=== PATIENT | female | born 1950 | race Caucasian/White ===

== ENCOUNTER 2019-02-19 17:43 | Observation (INO) ==
[2019-02-19] MEDS ORDERED: Ipratropium/Albuterol Neb 3 ML IH ONE ×2 (17:56→18:09)
[2019-02-19] MEDS ORDERED: Isovue-370 500 ML BOTTLE IVP ONE (17:56)
--- NOTE | 2019-02-19 17:58 | Emergency Department Note ---
Disposition Clinical Impression: Asthma with exacerbation Qualifiers: Asthma severity: unspecified severity Asthma persistence: unspecified Qualified Code(s): J45.901 - Unspecified asthma with (acute) exacerbation Dyspnea Qualifiers: Dyspnea type: unspecified Qualified Code(s): R06.00 - Dyspnea, unspecified Disposition: Admitted As Inpatient Condition: Fair General Adult HPI - General Chief complaint: ED Shortness of Breath/Dyspnea Stated complaint: SOB Time Seen by Provider: 02/19/19 17:44 Source: patient Limitations: no limitations Nursing Notes Reviewed: Yes Vital Signs Reviewed: Yes - History of Present Illness HPI Narrative: 68-year-old female past medical history of asthma, pulmonary emboli presents emergency Department with shortness of breath. Patient states that she has had increasing shortness of breath over the last few weeks. States that it has not gotten any better despite daily steroids as well as azithromycin. Patient reports recent URI type symptoms. Patient has any fever, nausea, vomiting. She does report cough. She denies any sputum production. Patient denies any chest pain, pressure, tightness or pain anywhere else. Pain Scale: 0 - Related Data Allergies Allergy/AdvReac Type Severity Reaction Status Date / Time No Known Allergies Allergy Verified 02/19/19 18:05 All systems ED: reviewed and negative except as stated. Review of Systems: As Per HPI Constitutional: Denies: fever Cardiovascular: Denies: chest pain Respiratory: Reports: cough, dyspnea. Denies: sputum production Gastrointestinal: Denies: abdominal pain, nausea, vomiting Genitourinary: Denies: urgency, dysuria Musculoskeletal: Denies: back pain Integumentary: Denies: rash Neurological: Denies: headache Past Medical History - Past Medical History Attestation: Yes The following information was validated with the patient. Medical history: Reports: asthma, COPD, hypertension, pulmonary embolus - Social History Smoking Status: Never smoker Smokeless Tobacco Status: No Alcohol use: Reports: none Drug use: Reports: none Physical Exam - General Limitations: no limitations General appearance: alert - Head Head exam: normocephalic - Eye Eye exam: Present: EOMI - ENT ENT exam: mucous membranes moist - Neck Neck exam: Present: trachea midline - Chest Chest inspection: Present: symmetric chest wall rise - Respiratory Respiratory exam: Present: wheezes. Absent: respiratory distress, accessory muscle use - Cardiovascular Cardiovascular exam: Present: normal rhythm, tachycardia - Abdominal Exam Abdominal exam: Present: soft, Non-Tender. Absent: tenderness, distention, guarding, rebound, rigidity - Extremities Exam Extremities exam: Present: normal capillary refill - Back Exam Back exam: Present: full ROM - Neurological Exam Neurological exam: Present: alert, oriented X3 - Psychiatric Psychiatric exam: Present: normal affect, normal mood - Skin Skin exam: Present: warm, dry, intact, normal color. Absent: rash Course Vital Signs Temperature 98.2 F 02/19/19 17:51 Pulse Rate 110 02/19/19 17:51 Respiratory Rate 24 02/19/19 17:51 Blood Pressure 166/94 02/19/19 17:51 O2 Sat by Pulse Oximetry 96 02/19/19 17:51 Temperature 98.2 F 02/19/19 17:51 Pulse Rate 131 02/19/19 20:08 Respiratory Rate 26 02/19/19 20:08 Blood Pressure 155/67 02/19/19 20:08 O2 Sat by Pulse Oximetry 95 02/19/19 20:08 Oxygen Delivery Oxygen Delivery Room Air Medical Decision Making - [facility] Narrative Medical decision making narrative: 68 year female presents emergency department with concern for dysuria. Patient tachycardic, with no increasing requirement for oxygen at this time, however, she does have wheezes throughout. We will give patient a DuoNeb's. We will also administer steroids. Concern that patient has been treated for the last 3 weeks on an outpatient basis for the asthma attack including enema, reveals one week ago. Chest x-ray revealed no acute process. CTA of the chest revealed no evidence of focal consolidation, pneumothorax, significant pleural effusion. Cannot rule out pulmonary embolus. I spoke to Dr. Abdulkadir Pérez, the hospitalist, about the patient. We decided to admit the patient secondary to asthma exacerbation and the concern that we cannot rule out pulmonary embolus. We will start heparin at this time until further studies can be performed. Patient not reporting any history of GI bleeds, hemoptysis, hematemesis. Chest CTA 02/19/19 17:56 IMPRESSION: Limited examination secondary to poor contrast opacification of the pulmonary vessels. No large central pulmonary embolism. Repeat examination or V/Q scan may be obtained as clinically warranted. No evidence of focal consolidation, pneumothorax, or significant pleural effusion. Hepatic steatosis. Suggestion of early hepatic cirrhosis. Clinical correlation is recommended. D/ / 02/19/2019 19:49:55 Addison Calvillo MD / sloane Interpreting Provider: Addison Calvillo MD Chest X-Ray 02/19/19 17:56 IMPRESSION: No acute process. D/ / Morro Huffman MD / Morro Huffman MD Interpreting Provider: Morro Huffman MD - Lab Data Result diagrams: 02/19/19 20:59 02/19/19 18:04 Lab Results 02/19/19 02/19/19 02/19/19 Range/Units 18:04 18:04 18:04 WBC 22.4 H (4.3-11.1) K/mcL RBC 4.62 (3.82-4.97) M/mcL Hgb 13.3 (11.5-15.4) g/dL Hct 42.5 (35.3-44.9) % MCV 92.0 (83.0-100.0) fL MCH 28.8 (28.0-33.3) pg MCHC 31.3 L (31.6-35.5) g/dL RDW 14.3 (11.5-14.5) % Plt Count 385 (140-400) K/mcL MPV 8.9 L (9.4-12.4) fL Immature Gran % 0.8 (0-4) % Seg Neutrophils % 74.0 % Lymphocytes % 17.5 % Monocytes % 6.7 % Eosinophils % 0.7 % Basophils % 0.3 % Neutrophils # 16.6 H (1.6-8.9) K/mcL Lymphocytes # 3.9 (0.6-4.6) K/mcL Monocytes # 1.5 H (0.0-1.3) K/mcL Eosinophils # 0.2 (0.0-0.6) K/mcL Basophils # 0.1 (0.0-0.2) K/mcL PT 10.9 (9.4-12.1) Seconds INR 1.0 APTT 28.3 (26.0-36.0) Seconds Sodium 140 (136-145) mEq/L Potassium 4.5 (3.5-5.1) mEq/L Chloride 106 (98-107) mEq/L Carbon Dioxide 28 (23-29) mEq/L BUN 21 (8-23) mg/dL Creatinine 0.80 (0.60-1.20) mg/dL Est GFR ( Amer) > 60 (> 60) Est GFR (Non-Af Amer) > 60 (> 60) BUN/Creatinine Ratio 26 (6-26) Glucose 86 (70-105) mg/dL Calculated Osmolality 292 (280-300) Lactic Acid (0.5-2.2) mmol/L Calcium 9.4 (8.6-10.3) mg/dL Troponin I < 0.03 (< 0.04) ng/mL B-Natriuretic Peptide (Less than 100) pg/mL Urine Color (Yellow) Urine Clarity (Clear) Urine pH (5.0-8.0) pH Units Ur Specific [place] (1.010-1.025) Urine Protein (Neg-Trace) mg/dL Urine Glucose (UA) (Normal) mg/dL Urine Ketones (Negative) mg/dL Urine Blood (Negative) Urine Nitrite (Negative) Urine Bilirubin (Negative) Urine Urobilinogen (Normal) mg/dL Ur Leukocyte Esterase (Negative) Ur Culture Indicated? (NO) 02/19/19 02/19/19 02/19/19 Range/Units 18:04 18:10 19:25 WBC (4.3-11.1) K/mcL RBC (3.82-4.97) M/mcL Hgb (11.5-15.4) g/dL Hct (35.3-44.9) % MCV (83.0-100.0) fL MCH (28.0-33.3) pg MCHC (31.6-35.5) g/dL RDW (11.5-14.5) % Plt Count (140-400) K/mcL MPV (9.4-12.4) fL Immature Gran % (0-4) % Seg Neutrophils % % Lymphocytes % % Monocytes % % Eosinophils % % Basophils % % Neutrophils # (1.6-8.9) K/mcL Lymphocytes # (0.6-4.6) K/mcL Monocytes # (0.0-1.3) K/mcL Eosinophils # (0.0-0.6) K/mcL Basophils # (0.0-0.2) K/mcL PT (9.4-12.1) Seconds INR APTT (26.0-36.0) Seconds Sodium (136-145) mEq/L Potassium (3.5-5.1) mEq/L Chloride (98-107) mEq/L Carbon Dioxide (23-29) mEq/L BUN (8-23) mg/dL Creatinine (0.60-1.20) mg/dL Est GFR ( Amer) (> 60) Est GFR (Non-Af Amer) (> 60) BUN/Creatinine Ratio (6-26) Glucose (70-105) mg/dL Calculated Osmolality (280-300) Lactic Acid 1.1 (0.5-2.2) mmol/L Calcium (8.6-10.3) mg/dL Troponin I (< 0.04) ng/mL B-Natriuretic Peptide 45 (Less than 100) pg/mL Urine Color Yellow (Yellow) Urine Clarity Clear (Clear) Urine pH 6.0 (5.0-8.0) pH Units Ur Specific [place] > 1.030 H (1.010-1.025) Urine Protein Trace (Neg-Trace) mg/dL Urine Glucose (UA) Normal (Normal) mg/dL Urine Ketones Negative (Negative) mg/dL Urine Blood Negative (Negative) Urine Nitrite Negative (Negative) Urine Bilirubin Negative (Negative) Urine Urobilinogen Normal (Normal) mg/dL Ur Leukocyte Esterase Negative (Negative) Ur Culture Indicated? NO (NO) 02/19/19 Range/Units 20:10 WBC (4.3-11.1) K/mcL RBC (3.82-4.97) M/mcL Hgb (11.5-15.4) g/dL Hct (35.3-44.9) % MCV (83.0-100.0) fL MCH (28.0-33.3) pg MCHC (31.6-35.5) g/dL RDW (11.5-14.5) % Plt Count (140-400) K/mcL MPV (9.4-12.4) fL Immature Gran % (0-4) % Seg Neutrophils % % Lymphocytes % % Monocytes % % Eosinophils % % Basophils % % Neutrophils # (1.6-8.9) K/mcL Lymphocytes # (0.6-4.6) K/mcL Monocytes # (0.0-1.3) K/mcL Eosinophils # (0.0-0.6) K/mcL Basophils # (0.0-0.2) K/mcL PT (9.4-12.1) Seconds INR APTT (26.0-36.0) Seconds Sodium (136-145) mEq/L Potassium (3.5-5.1) mEq/L Chloride (98-107) mEq/L Carbon Dioxide (23-29) mEq/L BUN (8-23) mg/dL Creatinine (0.60-1.20) mg/dL Est GFR ( Amer) (> 60) Est GFR (Non-Af Amer) (> 60) BUN/Creatinine Ratio (6-26) Glucose (70-105) mg/dL Calculated Osmolality (280-300) Lactic Acid 1.6 (0.5-2.2) mmol/L Calcium (8.6-10.3) mg/dL Troponin I (< 0.04) ng/mL B-Natriuretic Peptide (Less than 100) pg/mL Urine Color (Yellow) Urine Clarity (Clear) Urine pH (5.0-8.0) pH Units Ur Specific [place] (1.010-1.025) Urine Protein (Neg-Trace) mg/dL Urine Glucose (UA) (Normal) mg/dL Urine Ketones (Negative) mg/dL Urine Blood (Negative) Urine Nitrite (Negative) Urine Bilirubin (Negative) Urine Urobilinogen (Normal) mg/dL Ur Leukocyte Esterase (Negative) Ur Culture Indicated? (NO) - EKG Data EKG #1 EKG attestation: Yes I reviewed and interpreted this EKG. EKG results narrative: 17:53 Heart rate 112 bpm, VT interval 138 ms, QRS duration 106 ms, QT 230 ms, normal axis. Sinus tachycardia with no ischemic ST changes. Attestation Statement - Attestation Attestation: I, Gerald Leon DO, examined this patient [id number] and my medical decision-making was reviewed with Dr. Aries Yip, Resident Physician. I agree with the documented findings, disposition and treatment plan as described except to the extent set forth below. I personally supervised and was present for the yuen/critical portions of the procedures completed by the resident documented below. Please see my progress notes for details.
[2019-02-19] MEDS ORDERED: predniSONE 20 MG TABLET PO ONE (18:09)
--- NOTE | 2019-02-19 18:14 | Emergency Department Note ---
Disposition Clinical Impression: Asthma with exacerbation Disposition: Admitted As Inpatient Condition: Fair Time of Disposition: 21:01 General Adult HPI - General Chief complaint: ED Shortness of Breath/Dyspnea Stated complaint: SOB Time Seen by Provider: 02/19/19 17:44 Source: patient Limitations: no limitations - History of Present Illness Pain Scale: 0 - Related Data Allergies Allergy/AdvReac Type Severity Reaction Status Date / Time No Known Allergies Allergy Verified 02/19/19 18:05 Past Medical History - Past Medical History Medical history: Reports: asthma, COPD, hypertension, pulmonary embolus - Social History Smoking Status: Never smoker Smokeless Tobacco Status: No Alcohol use: Reports: none Drug use: Reports: none Physical Exam - General Limitations: no limitations General appearance: alert Course Vital Signs Temperature 98.2 F 02/19/19 17:51 Pulse Rate 110 02/19/19 17:51 Respiratory Rate 24 02/19/19 17:51 Blood Pressure 166/94 02/19/19 17:51 O2 Sat by Pulse Oximetry 96 02/19/19 17:51 Temperature 98.2 F 02/19/19 17:51 Pulse Rate 131 02/19/19 20:08 Respiratory Rate 26 02/19/19 20:08 Blood Pressure 155/67 02/19/19 20:08 O2 Sat by Pulse Oximetry 95 02/19/19 20:08 Oxygen Delivery Oxygen Delivery Room Air Medical Decision Making - Lab Data Result diagrams: 02/19/19 18:04 02/19/19 18:04 Lab Results 02/19/19 02/19/19 02/19/19 Range/Units 18:04 18:04 18:04 WBC 22.4 H (4.3-11.1) K/mcL RBC 4.62 (3.82-4.97) M/mcL Hgb 13.3 (11.5-15.4) g/dL Hct 42.5 (35.3-44.9) % MCV 92.0 (83.0-100.0) fL MCH 28.8 (28.0-33.3) pg MCHC 31.3 L (31.6-35.5) g/dL RDW 14.3 (11.5-14.5) % Plt Count 385 (140-400) K/mcL MPV 8.9 L (9.4-12.4) fL Immature Gran % 0.8 (0-4) % Seg Neutrophils % 74.0 % Lymphocytes % 17.5 % Monocytes % 6.7 % Eosinophils % 0.7 % Basophils % 0.3 % Neutrophils # 16.6 H (1.6-8.9) K/mcL Lymphocytes # 3.9 (0.6-4.6) K/mcL Monocytes # 1.5 H (0.0-1.3) K/mcL Eosinophils # 0.2 (0.0-0.6) K/mcL Basophils # 0.1 (0.0-0.2) K/mcL PT 10.9 (9.4-12.1) Seconds INR 1.0 APTT 28.3 (26.0-36.0) Seconds Sodium 140 (136-145) mEq/L Potassium 4.5 (3.5-5.1) mEq/L Chloride 106 (98-107) mEq/L Carbon Dioxide 28 (23-29) mEq/L BUN 21 (8-23) mg/dL Creatinine 0.80 (0.60-1.20) mg/dL Est GFR ( Amer) > 60 (> 60) Est GFR (Non-Af Amer) > 60 (> 60) BUN/Creatinine Ratio 26 (6-26) Glucose 86 (70-105) mg/dL Calculated Osmolality 292 (280-300) Lactic Acid (0.5-2.2) mmol/L Calcium 9.4 (8.6-10.3) mg/dL Troponin I < 0.03 (< 0.04) ng/mL B-Natriuretic Peptide (Less than 100) pg/mL Urine Color (Yellow) Urine Clarity (Clear) Urine pH (5.0-8.0) pH Units Ur Specific [place] (1.010-1.025) Urine Protein (Neg-Trace) mg/dL Urine Glucose (UA) (Normal) mg/dL Urine Ketones (Negative) mg/dL Urine Blood (Negative) Urine Nitrite (Negative) Urine Bilirubin (Negative) Urine Urobilinogen (Normal) mg/dL Ur Leukocyte Esterase (Negative) Ur Culture Indicated? (NO) 02/19/19 02/19/19 02/19/19 Range/Units 18:04 18:10 19:25 WBC (4.3-11.1) K/mcL RBC (3.82-4.97) M/mcL Hgb (11.5-15.4) g/dL Hct (35.3-44.9) % MCV (83.0-100.0) fL MCH (28.0-33.3) pg MCHC (31.6-35.5) g/dL RDW (11.5-14.5) % Plt Count (140-400) K/mcL MPV (9.4-12.4) fL Immature Gran % (0-4) % Seg Neutrophils % % Lymphocytes % % Monocytes % % Eosinophils % % Basophils % % Neutrophils # (1.6-8.9) K/mcL Lymphocytes # (0.6-4.6) K/mcL Monocytes # (0.0-1.3) K/mcL Eosinophils # (0.0-0.6) K/mcL Basophils # (0.0-0.2) K/mcL PT (9.4-12.1) Seconds INR APTT (26.0-36.0) Seconds Sodium (136-145) mEq/L Potassium (3.5-5.1) mEq/L Chloride (98-107) mEq/L Carbon Dioxide (23-29) mEq/L BUN (8-23) mg/dL Creatinine (0.60-1.20) mg/dL Est GFR ( Amer) (> 60) Est GFR (Non-Af Amer) (> 60) BUN/Creatinine Ratio (6-26) Glucose (70-105) mg/dL Calculated Osmolality (280-300) Lactic Acid 1.1 (0.5-2.2) mmol/L Calcium (8.6-10.3) mg/dL Troponin I (< 0.04) ng/mL B-Natriuretic Peptide 45 (Less than 100) pg/mL Urine Color Yellow (Yellow) Urine Clarity Clear (Clear) Urine pH 6.0 (5.0-8.0) pH Units Ur Specific [place] > 1.030 H (1.010-1.025) Urine Protein Trace (Neg-Trace) mg/dL Urine Glucose (UA) Normal (Normal) mg/dL Urine Ketones Negative (Negative) mg/dL Urine Blood Negative (Negative) Urine Nitrite Negative (Negative) Urine Bilirubin Negative (Negative) Urine Urobilinogen Normal (Normal) mg/dL Ur Leukocyte Esterase Negative (Negative) Ur Culture Indicated? NO (NO) 04/27/19 Range/Units 20:10 WBC (4.3-11.1) K/mcL RBC (3.82-4.97) M/mcL Hgb (11.5-15.4) g/dL Hct (35.3-44.9) % MCV (83.0-100.0) fL MCH (28.0-33.3) pg MCHC (31.6-35.5) g/dL RDW (11.5-14.5) % Plt Count (140-400) K/mcL MPV (9.4-12.4) fL Immature Gran % (0-4) % Seg Neutrophils % % Lymphocytes % % Monocytes % % Eosinophils % % Basophils % % Neutrophils # (1.6-8.9) K/mcL Lymphocytes # (0.6-4.6) K/mcL Monocytes # (0.0-1.3) K/mcL Eosinophils # (0.0-0.6) K/mcL Basophils # (0.0-0.2) K/mcL PT (9.4-12.1) Seconds INR APTT (26.0-36.0) Seconds Sodium (136-145) mEq/L Potassium (3.5-5.1) mEq/L Chloride (98-107) mEq/L Carbon Dioxide (23-29) mEq/L BUN (8-23) mg/dL Creatinine (0.60-1.20) mg/dL Est GFR ( Amer) (> 60) Est GFR (Non-Af Amer) (> 60) BUN/Creatinine Ratio (6-26) Glucose (70-105) mg/dL Calculated Osmolality (280-300) Lactic Acid 1.6 (0.5-2.2) mmol/L Calcium (8.6-10.3) mg/dL Troponin I (< 0.04) ng/mL B-Natriuretic Peptide (Less than 100) pg/mL Urine Color (Yellow) Urine Clarity (Clear) Urine pH (5.0-8.0) pH Units Ur Specific [place] (1.010-1.025) Urine Protein (Neg-Trace) mg/dL Urine Glucose (UA) (Normal) mg/dL Urine Ketones (Negative) mg/dL Urine Blood (Negative) Urine Nitrite (Negative) Urine Bilirubin (Negative) Urine Urobilinogen (Normal) mg/dL Ur Leukocyte Esterase (Negative) Ur Culture Indicated? (NO) Attestation Statement - Attestation Attestation: I, Gerald Leon DO, examined this patient [id number] and my medical decision-making was reviewed with Dr. Aries Yip, Resident Physician. I agree with the documented findings, disposition and treatment plan as described except to the extent set forth below. I personally supervised and was present for the yuen/critical portions of the procedures completed by the resident documented below. Please see my progress notes for details. 68-year-old female presents to emergency room for complaint of shortness of breath. Patient has had a symptoms for approximately 3 weeks. She is been treating it with one prescription antibiotic and steroids with no significant relief. She does have a history of pulmonary emboli multiple years ago. She denies any recent illnesses outside of the described upper respiratory infection. She does have baseline asthma. She denies any active chest pain and has had intermittent orthopnea and shortness of breath. Denies any nausea vomiting or diarrhea. No specific fevers or chills. Denies any headache or vision change. She has not fallen or injured herself. She has not had any recent surgeries or prolonged immobilizations. Vital signs do show a tachycardia on presentation. Pulse ox is normal. Stridor. She is morbidly obese with significant truncal obesity. She has bilateral diffuse wheezing noted in the anterior and posterior listing stern. Heart is regular but tachycardic. Abdomen is soft no guarding or rigidity. No CVA tenderness rash or lesions noted on exam. Extremities otherwise normal outside of some slight dependent edema in the bilateral lower tremors but no asymmetry noted at this time. Patient is speaking in full sentences. She does not have any acute neurologic deficits or issues. Workup at this time is his going to be focused on dyspnea. Chest x-ray EKG CBC chemistry troponin and BNP along with urinalysis and EKG will be collected. Patient will be provided with breathing treatments here in the emergency department and then disposition will be determined. CT angiography will also be ordered secondary to the patient's history of pulmonary emboli as well as the tachycardia here today. See detailed documentation of the physical exam, medical intervention, medical decision- making and disposition in the resident physician's note. No critical care applied the patient's treatment course at this time. 2015 CT angiography is equivocal at this time. No visible pulmonary emboli but cannot be ruled out at this time. No visible signs of right heart strain. She does have underlying etiology of asthma most likely causing the tightness here today but because of the nondiagnostic scan, and her history, patient will be recommended for admission for monitoring. Her white blood cell count is most likely secondary to the steroid she is been on here over the last several days to weeks. Patient is otherwise clinically stable at this point. Heart rate will be reevaluated and symptomatically control determined. Disposition will be admission for monitoring. Blood thinner will be started at the request of the hospitalist if needed. Patient otherwise is stable. [address] hartley reviewed the case. He did recommend starting anticoagulation at this time. Patient will be admitted for symptomatic control monitoring. Otherwise she is stable. Patient will be monitoring emergency room until admission process is completed.
[2019-02-19 18:25] LABS: Basophils # 0.1 K/mcL (0.0-0.2); Basophils % 0.3 %; Eosinophils # 0.2 K/mcL (0.0-0.6); Eosinophils % 0.7 %; Hematocrit 42.5 % (35.3-44.9); Hemoglobin 13.3 g/dL (11.5-15.4); Immature Granulocytes % 0.8 % (0-4); Lymphocytes # 3.9 K/mcL (0.6-4.6); Lymphocytes % 17.5 %; Mean Corpuscular HGB Conc 31.3 g/dL (31.6-35.5); Mean Corpuscular Hemoglobin 28.8 pg (28.0-33.3); Mean Platelet Volume 8.9 fL (9.4-12.4); Monocytes # 1.5 K/mcL (0.0-1.3); Monocytes % 6.7 %; Neutrophils # 16.6 K/mcL (1.6-8.9); Platelet Count 385 K/mcL (140-400); Red Blood Count 4.62 M/mcL (3.82-4.97); Red Cell Distribution Width 14.3 % (11.5-14.5)
[2019-02-19 18:37] LABS: Prothrombin Time 10.9 Seconds (9.4-12.1)
[2019-02-19 18:39] LABS: Activated Partial Thrombo Time 28.3 Seconds (26.0-36.0)
[2019-02-19 18:45] LABS: BUN/Creatinine Ratio 26 (6-26); Blood Urea Nitrogen 21 mg/dL (8-23); Calcium 9.4 mg/dL (8.6-10.3); Carbon Dioxide 28 mEq/L (23-29); Chloride 106 mEq/L (98-107); Glucose 86 mg/dL (70-105); Osmolality,Calculated 292 (280-300); Potassium 4.5 mEq/L (3.5-5.1); Sodium 140 mEq/L (136-145); Troponin I < 0.03 ng/mL (< 0.04); eGFR For Non-African Americans > 60 (> 60)
[2019-02-19 19:41] LABS: Bilirubin,Urine Negative (Negative); Blood,Urine Negative (Negative); Clarity,Urine Clear (Clear); Color,Urine Yellow (Yellow); Glucose,Urine (UA) Normal (Normal); Ketones,Urine Negative (Negative); Leukocyte Esterase,Urine Negative (Negative); Nitrite,Urine Negative (Negative); Protein,Urine Trace mg/dL (Neg-Trace); Specific Gravity,Urine > 1.030 (1.010-1.025); Urobilinogen,Urine Normal (Normal)
[2019-02-19] MEDS ORDERED: *HR* Heparin 5,000 UNIT/ML VIAL IVP ONE (20:44)
[2019-02-19] MEDS ORDERED: *HR* Heparin 5,000 UNIT/ML VIAL IVP PRN ×2 (20:44)
[2019-02-19] MEDS ORDERED: Heparin 25,000 UNIT/250 ML D5W 25,000 UNIT/250 ML IV.SOLN IVC SCH (20:45)
[2019-02-19] MEDS ORDERED: 0.9 % Sodium Chloride 1,000 ML IVC ONE (20:45)
[2019-02-19 21:08] LABS: Hematocrit 39.8 % (35.3-44.9); Hemoglobin 12.4 g/dL (11.5-15.4); Mean Corpuscular HGB Conc 31.2 g/dL (31.6-35.5); Mean Corpuscular Hemoglobin 28.6 pg (28.0-33.3); Mean Corpuscular Volume 91.9 fL (83.0-100.0); Mean Platelet Volume 8.7 fL (9.4-12.4); Platelet Count 337 K/mcL (140-400); Red Blood Count 4.33 M/mcL (3.82-4.97); Red Cell Distribution Width 14.3 % (11.5-14.5)
[2019-02-19 21:16] LABS: Heparin anti-factor XA UFH 0.01 IU/mL (0.30-0.70); INR 0.9; Prothrombin Time 10.6 Seconds (9.4-12.1)
[2019-02-19] MEDS ORDERED: Furosemide 40 MG/4 ML VIAL IVP ONE (21:19)
--- NOTE | 2019-02-19 21:37 | Internal Med History&Physical ---
Date of Encounter: 02/19/19 Time of Encounter: 21:35 Internal Medicine - H&P: HPI Chief complaint: SOB Admitted From: Home Plans for Post Hospital Care: Home History of present illness: Dayana Montesinos is a morbidly obese 68-year-old woman with hypertension, asthma/COPD, obstructive sleep apnea and prior provoked pulmonary embolism presents to the emergency room complaining of shortness of breath that has been increasing in severity over the past few weeks. She says she has been taking oral steroids as well as azithromycin with minimal relief. She reported preceding URI symptoms but this time has no fever, chills, chest pain, nausea or vomiting. She does report having a cough that is dry and nonproductive. She denies a smoking history. In the ER she was found notably wheezy but no increas e in oxygen requirement. She was given nebulizer therapy and oral steroids. She was also given a liter of fluids. X-ray did not reveal any focal consolidations and CTA of her chest was negative for central pulmonary embolism. She is admitted for further care. Vitals: Reviewed General: Morbidly obese white woman is lying in bed in no acute distress. Skin: Warm and supple. HEENT: Moist mucous membranes. No conjunctivae pallor. Neck: Short and thick. Chest: Diminished thoracic expansion. Scattered expiratory wheezes are audible. Heart: Diminished sounds due to adiposity. Tachycardic. No rubs or murmurs. Abdomen: Soft and non-tender to palpation. No peritoneal reaction. Extremities: No clubbing, cyanosis or edema. No calf tenderness. Normal distal pulses. Neurological: Awake, alert and oriented to person, place and time. No focal deficits. Psych: Affect appropriate. Assessment/Plan Acute respiratory failure secondary to asthma/COPD exacerbation: There are no signs of bacterial infection present. It is plausible that her symptoms may be triggered by a viral illness and inadequate therapies at home. Will continue nebulizer therapy using ipratropium with levalbuterol given her history of tachycardia/tachyarrhythmia that has been evaluated in the past with Holter. Will give systemic steroids at 1mg/kg. Will also give a dose of furosemide 40mg IVP x 1 to relief any congestion there may be. Will get an echo for evaluation in the morning as she may have pulmonary hypertension. Leukocytosis: Likely secondary to use of steroids. No signs of bacterial infection present at this time. Will continue to monitor. HTN: Will continue losartan. HANNAH: CPAP ordered. Obesity: Counseled and educated on therapeutic lifestyle changes for weight loss as it will be of benefit in controlling comorbidities. Posting Specialist evaluation advised. She will benefit from bariatric evaluation. Past Med Surg Social Fam HX - Past Medical History Medical history: asthma, COPD, hypertension, pulmonary embolus - Past Surgical History Additional surgical history: right knee replacement. - Social History Smoking Status: Never smoker Smokeless Tobacco Status: No Alcohol use: none Drug use: none Internal Medicine - H&P: Meds Aspirin [Lo-Dose Aspirin EC] 81 mg PO DAILY 02/19/19 [History] Diltiazem [Cardizem] 180 mg PO DAILY 02/19/19 [History] Levalbuterol HCl [Xopenex] 1.25 mg IH Q4-6H PRN 02/19/19 [History] Multivitamin [Multivitamins] 1 tab PO DAILY 02/19/19 [History] Preservision Areds Tablet 1 tab PO BID 02/19/19 [History] Allergy/AdvReac Type Severity Reaction Status Date / Time No Known Allergies Allergy Verified 02/19/19 18:05 All Systems PM: A 10-system review of systems was performed and is negative for pertinent findings except as documented above in the HPI. Family history reviewed and found non-contributory. - Constitutional Vitals: Temp Pulse Resp BP Pulse Ox 98.2 F 110 20 150/116 94 02/19/19 17:51 02/19/19 21:16 02/19/19 21:16 02/19/19 21:16 02/19/19 21:16 Exam: . Internal Med - H&P Results - Labs CBC & Chem 7: 02/19/19 20:59 02/19/19 18:04 Labs: Short CBC 02/19/19 02/19/19 Range/Units 18:04 20:59 WBC 22.4 H 23.4 H (4.3-11.1) K/mcL Hgb 13.3 12.4 (11.5-15.4) g/dL Hct 42.5 39.8 (35.3-44.9) % Plt Count 385 337 (140-400) K/mcL Neutrophils # 16.6 H (1.6-8.9) K/mcL BMP 02/19/19 18:04 Sodium 140 Potassium 4.5 Chloride 106 Carbon Dioxide 28 BUN 21 Creatinine 0.80 Glucose 86 Calcium 9.4 Cardiac Enzymes 02/19/19 Range/Units 18:04 Troponin I < 0.03 (< 0.04) ng/mL Urine 02/19/19 Range/Units 19:25 Urine Color Yellow (Yellow) Urine Clarity Clear (Clear) Urine pH 6.0 (5.0-8.0) pH Units Ur Specific [place] > 1.030 H (1.010-1.025) Urine Protein Trace (Neg-Trace) mg/dL Urine Glucose (UA) Normal (Normal) mg/dL - Impressions ITS Impressions Chest CTA 02/19/19 17:56 IMPRESSION: Limited examination secondary to poor contrast opacification of the pulmonary vessels. No large central pulmonary embolism. Repeat examination or V/Q scan may be obtained as clinically warranted. No evidence of focal consolidation, pneumothorax, or significant pleural effusion. Hepatic steatosis. Suggestion of early hepatic cirrhosis. Clinical correlation is recommended. D/ / 02/19/2019 19:49:55 Addison Calvillo MD / sloane Interpreting Provider: Addison Calvillo MD Chest X-Ray 02/19/19 17:56 IMPRESSION: No acute process. D/ / Morro Huffman MD / Morro Huffman MD Interpreting Provider: Morro Huffman MD - Time Spent With Patient Total time spent is greater than 50% in coordination of care (as documented) at patient's floor/unit and/or counseling patient: Greater than 35 minutes
[2019-02-19] MEDS ORDERED: traMADol 50 MG TABLET PO PRN (21:38)
[2019-02-19] MEDS ORDERED: Acetaminophen 325 MG TABLET PO PRN (21:38)
[2019-02-19] MEDS: Ipratropium Neb 0.5 MG NEBULIZER IH SCH (22:55)
[2019-02-19] MEDS: Levalbuterol Neb 1.25 MG/3 ML IH SCH (22:55)
[2019-02-19] MEDS: MethylPREDNISolone 40 MG/ML VIAL IVP SCH (23:08)
[2019-02-19] MEDS: *HR* Heparin 5,000 UNIT/ML VIAL SQ SCH (23:09)
[2019-02-20] MEDS: Levalbuterol Neb 1.25 MG/3 ML IH SCH ×4 (04:10→22:06)
[2019-02-20] MEDS: Ipratropium Neb 0.5 MG NEBULIZER IH SCH ×4 (04:10→22:06)
[2019-02-20] MEDS: *HR* Heparin 5,000 UNIT/ML VIAL SQ SCH ×3 (05:27→21:31)
[2019-02-20] MEDS: MethylPREDNISolone 40 MG/ML VIAL IVP SCH ×4 (05:28→23:41)
[2019-02-20] MEDS: Aspirin 81 MG TAB.CHEW PO SCH (09:37)
[2019-02-20] MEDS: Diltiazem CD (24hr) 180 MG CAPSULE PO SCH (09:37)
[2019-02-20] MEDS: Fluticasone Propionate Nasal 50 MCG/SPRAY BOTTLE NS SCH (11:37)
--- NOTE | 2019-02-20 16:12 | Internal Med Progress Note ---
Hospitalist Progress Note - Encounter Date of Encounter: 02/20/19 Time of Encounter: 16:10 - Subjective Interval History: SUBJECTIVE: The patient feels better. Her breathing is not labored anymore. She has some cough and occasionally wheezing. Denies chest pain. Denies abdominal pain, nausea and vomiting. She has normal urination. OBJECTIVE: Skin: Free of rash and discoloration. ENMT: Oral/pharyngeal mucosa is normal in appearance. Eyes: Sclera is white. There is no discharge from eyes. Respiratory: Normal breath sounds. I can hear a few bilateral rhonchi and wheezes. CV: Heart is regular with no gallop or murmur. GI: Abdomen is soft and not tender. There is no palpable mass or visceromegaly. Neuro: There is no focal deficits. ADDITIONAL DATA: CT angiogram from 02/19 does not show any evidence for pulmonary emboli. Chest x-ray from 02/19 shows normal findings. CBC from yesterday showed hemoglobin of 12.4 with WBC of 23.4 thousand and normal platelet count. She was taking steroids at home. BMP from yesterday showed normal findings. ASSESSMENT AND PLAN: Asthma with exacerbation. The patient has never used tobacco. I will continue Solu-Medrol and nebulizer treatments with Xopenex. I will give her IV doxycycline. Acute on chronic respiratory failure with hypoxia. She will benefit from supplemental oxygen. Leukocytosis. Likely secondary to treatment of steroids. Something to observe. Hypertension. Under control. She is on Cardizem CD. Obstructive sleep apnea. I will continue CPAP, when the patient is sleeping. Disposition: I anticipate he will discharge home in 1-2 days. - Exam Vitals: Temp Pulse Resp BP Pulse Ox 98.0 F 99 21 145/73 95 02/20/19 16:00 02/20/19 16:00 02/20/19 16:00 02/20/19 16:00 02/20/19 16:00 Exam: xx - Assessment and Plan (1) Asthma with exacerbation Current Visit: Yes Status: Acute (2) Acute respiratory failure with hypoxia Current Visit: Yes Status: Acute (3) Leukocytosis Current Visit: Yes Status: Acute (4) HTN (hypertension) Current Visit: Yes Status: Acute (5) HANNAH (obstructive sleep apnea) Current Visit: Yes Status: Acute - Time Spent with Patient Total time spent is greater than 50% in coordination of care (as documented) at patient's floor/unit and/or counseling patient: 25 - 35 minutes Plan of Care Discussed with: patient Internal Medicine: Result - Labs CBC & Chem 7: 02/19/19 20:59 02/19/19 18:04 Labs: Short CBC 02/19/19 02/19/19 Range/Units 18:04 20:59 WBC 22.4 H 23.4 H (4.3-11.1) K/mcL Hgb 13.3 12.4 (11.5-15.4) g/dL Hct 42.5 39.8 (35.3-44.9) % Plt Count 385 337 (140-400) K/mcL Neutrophils # 16.6 H (1.6-8.9) K/mcL BMP 02/19/19 18:04 Sodium 140 Potassium 4.5 Chloride 106 Carbon Dioxide 28 BUN 21 Creatinine 0.80 Glucose 86 Calcium 9.4 Cardiac Enzymes 02/19/19 Range/Units 18:04 Troponin I < 0.03 (< 0.04) ng/mL Urine 02/19/19 Range/Units 19:25 Urine Color Yellow (Yellow) Urine Clarity Clear (Clear) Urine pH 6.0 (5.0-8.0) pH Units Ur Specific [place] > 1.030 H (1.010-1.025) Urine Protein Trace (Neg-Trace) mg/dL Urine Glucose (UA) Normal (Normal) mg/dL - ABG Interpretation ABG results: PT/INR, D-dimer PT 10.6 Seconds (9.4-12.1) 02/19/19 20:59 - Impressions Impressions Chest CTA 02/19/19 17:56 IMPRESSION: Limited examination secondary to poor contrast opacification of the pulmonary vessels. No large central pulmonary embolism. Repeat examination or V/Q scan may be obtained as clinically warranted. No evidence of focal consolidation, pneumothorax, or significant pleural effusion. Hepatic steatosis. Suggestion of early hepatic cirrhosis. Clinical correlation is recommended. D/ / 02/19/2019 19:49:55 Addison Calvillo MD / sloane Interpreting Provider: Addison Calvillo MD Chest X-Ray 02/19/19 17:56 IMPRESSION: No acute process. D/ / Morro Huffman MD / Morro Huffman MD Interpreting Provider: Morro Huffman MD Echocardiogram 02/19/19 21:19 Impressions: LVEF 65%. Mild left ventricular diastolic dysfunction. Normal right ventricular structure and function. No significant valvular dysfunction. Unable to estimate RVSP due to suboptimal TR signal. Left Ventricular Wall Motion: Rest Echo Findings The mid anterior septal, mid inferior lateral, basal anterior septal and basal inferior lateral benson were not visualized. All other wall segments showed normal motion. Findings: Study Quality * Technically challenging due to body habitus. ECG Findings * Normal sinus rhythm. Left Ventricle * LVEF 65%. * LV measurements not well obtained. Grossly, LV chamber size and wall thickness appear normal. * Mild left ventricular diastolic dysfunction. Right Ventricle * Normal right ventricular structure and function. Left Atrium * Normal left atrial size. Right Atrium * Normal right atrial size. Aortic Valve * No aortic regurgitation. * Aortic valve not well visualized. * No aortic stenosis. Mitral Valve * No mitral stenosis. * Mitral valve not well visualized. * Trace mitral regurgitation. Tricuspid Valve * Tricuspid valve not well visualized. * Trace tricuspid regurgitation. Pulmonic Valve * Pulmonic valve is not well visualized. * No pulmonic stenosis. * No pulmonic regurgitation. Pulmonary Artery * Pulmonary artery not well visualized. Aorta * Normally sized aortic root. Pericardium * There is no pericardial effusion present. Interatrial Septum * No evidence of PFO by color Doppler. IVC * The IVC is not well evaluated. Consult Discharge Plan - Plan Referrals: NONE,PCP [Primary Care Provider] - (1) Asthma with exacerbation Qualifiers: Asthma severity: unspecified severity Asthma persistence: unspecified Qualified Code(s): J45.901 - Unspecified asthma with (acute) exacerbation (3) Leukocytosis Qualifiers: Leukocytosis type: other Qualified Code(s): D72.828 - Other elevated white blood cell count (4) HTN (hypertension) Qualifiers: Hypertension type: essential hypertension Qualified Code(s): I10 - Essential (primary) hypertension
[2019-02-20] MEDS: Doxycycline 100 MG in 0.9 % Sodium Chloride Mini Bag 100 ML IVPB SCH (17:12)
[2019-02-21] MEDS: Ipratropium Neb 0.5 MG NEBULIZER IH SCH ×4 (04:27→22:09)
[2019-02-21] MEDS: Levalbuterol Neb 1.25 MG/3 ML IH SCH ×4 (04:27→22:09)
[2019-02-21] MEDS: Doxycycline 100 MG in 0.9 % Sodium Chloride Mini Bag 100 ML IVPB SCH ×2 (05:47→17:04)
[2019-02-21] MEDS: MethylPREDNISolone 40 MG/ML VIAL IVP SCH ×3 (05:47→17:04)
[2019-02-21] MEDS: *HR* Heparin 5,000 UNIT/ML VIAL SQ SCH ×3 (05:47→22:01)
[2019-02-21 06:42] LABS: Basophils # 0.1 K/mcL (0.0-0.2); Basophils % 0.2 %; Hematocrit 40.4 % (35.3-44.9); Hemoglobin 12.7 g/dL (11.5-15.4); Lymphocytes % 7.8 %; Mean Corpuscular HGB Conc 31.4 g/dL (31.6-35.5); Mean Corpuscular Hemoglobin 28.7 pg (28.0-33.3); Mean Corpuscular Volume 91.2 fL (83.0-100.0); Mean Platelet Volume 8.8 fL (9.4-12.4); Monocytes # 0.7 K/mcL (0.0-1.3); Monocytes % 2.6 %; Platelet Count 374 K/mcL (140-400); Red Blood Count 4.43 M/mcL (3.82-4.97); Red Cell Distribution Width 14.2 % (11.5-14.5); Segmented Neutrophils % 88.4 %
[2019-02-21 06:44] LABS: Neutrophils # 22.1 K/mcL (1.6-8.9)
[2019-02-21 07:02] LABS: BUN/Creatinine Ratio 28 (6-26); Blood Urea Nitrogen 20 mg/dL (8-23); Calcium 9.8 mg/dL (8.6-10.3); Carbon Dioxide 26 mEq/L (23-29); Chloride 102 mEq/L (98-107); Glucose 173 mg/dL (70-105); Osmolality,Calculated 289 (280-300); Potassium 4.8 mEq/L (3.5-5.1); Sodium 136 mEq/L (136-145); eGFR For Non-African Americans > 60 (> 60)
[2019-02-21 07:41] LABS: Platelet Estimate Normal (Normal)
[2019-02-21] MEDS: Diltiazem CD (24hr) 180 MG CAPSULE PO SCH (08:02)
[2019-02-21] MEDS: Aspirin 81 MG TAB.CHEW PO SCH (08:02)
[2019-02-21] MEDS: Fluticasone Propionate Nasal 50 MCG/SPRAY BOTTLE NS SCH (08:03)
--- NOTE | 2019-02-21 13:08 | Electrocardiograph Report ---
[address] [address] Test Date: 2019-02-19 Pat Name: Dayana Montesinos Department: [id number] Room: 2A43 Gender: F Associate Sales: : 1950 Requested By: Gerald Leon Order Number: [id number] Reading MD: Obed Leyva Measurements Intervals [place] Rate: 112 P: 49 [place]: 138 QRS: -14 QRSD: 106 T: 47 QT: 330 QTc: 447 Interpretive Statements Sinus tachycardia Ventricular tachycardia, unsustained Low voltage, precordial leads baseline artifact Electronically Signed On 02-21-2019 13:06:24 EDT by Obed Leyva
--- NOTE | 2019-02-21 22:58 | Internal Med Progress Note ---
Hospitalist Progress Note - Encounter Date of Encounter: 02/21/19 Time of Encounter: 19:00 - Subjective Interval History: SUBJECTIVE: The patient feels progressively better. Her breathing is not labored anymore. Her cough is mild. The wheezing nearly subsided. Denies chest pain. Denies abdominal pain, nausea and vomiting. She has normal urination. OBJECTIVE: Skin: Free of rash and discoloration. ENMT: Oral/pharyngeal mucosa is normal in appearance. Eyes: Sclera is white. There is no discharge from eyes. Respiratory: Normal breath sounds. I can hear a few bilateral rhonchi and wheezes. CV: Heart is regular with no gallop or murmur. GI: Abdomen is soft and not tender. There is no palpable mass or visceromegaly. Neuro: There is no focal deficits. ADDITIONAL DATA: CT angiogram from 02/19 does not show any evidence for pulmonary emboli. Chest x-ray from 02/19 shows normal findings. She continues to have high WBC, 25.0 thousand today. This is likely due to steroids. BMP is basically normal; fasting glucose is 173. ASSESSMENT AND PLAN: Asthma with exacerbation. The patient has never used tobacco. Getting better. I am switching her from IV Solu-Medrol to oral prednisone. Continue nebulizer treatments with Atrovent and Xopenex. She is on Singulair and Flonase. I will give her IV doxycycline. Acute on chronic respiratory failure with hypoxia. She is 93% on room air. Leukocytosis. Likely secondary to treatment of steroids. Hypertension. Under control. She is on Cardizem CD. Obstructive sleep apnea. I will continue CPAP, when the patient is sleeping. Disposition: I anticipate he will discharge home tomorrow. - Exam Vitals: Temp Pulse Resp BP Pulse Ox 98.3 F 94 22 144/75 97 02/21/19 19:10 02/21/19 19:10 02/21/19 22:10 02/21/19 19:10 02/21/19 22:10 Exam: xx - Assessment and Plan (1) Asthma with exacerbation Current Visit: Yes Status: Acute (2) Acute respiratory failure with hypoxia Current Visit: Yes Status: Acute (3) Leukocytosis Current Visit: Yes Status: Acute (4) HTN (hypertension) Current Visit: Yes Status: Acute (5) HANNAH (obstructive sleep apnea) Current Visit: Yes Status: Acute - Time Spent with Patient Total time spent is greater than 50% in coordination of care (as documented) at patient's floor/unit and/or counseling patient: 25 - 35 minutes Plan of Care Discussed with: patient Internal Medicine: Result - Labs CBC & Chem 7: 02/21/19 06:29 02/21/19 06:29 Labs: Short CBC 02/21/19 Range/Units 06:29 WBC 25.0 H (4.3-11.1) K/mcL Hgb 12.7 (11.5-15.4) g/dL Hct 40.4 (35.3-44.9) % Plt Count 374 (140-400) K/mcL Neutrophils # 22.1 H (1.6-8.9) K/mcL BMP 02/21/19 06:29 Sodium 136 Potassium 4.8 Chloride 102 Carbon Dioxide 26 BUN 20 Creatinine 0.71 Glucose 173 H Calcium 9.8 - ABG Interpretation ABG results: PT/INR, D-dimer PT 10.6 Seconds (9.4-12.1) 02/19/19 20:59 Consult Discharge Plan - Plan Referrals: NONE,PCP [Primary Care Provider] - (1) Asthma with exacerbation Qualifiers: Asthma severity: unspecified severity Asthma persistence: unspecified Qualified Code(s): J45.901 - Unspecified asthma with (acute) exacerbation (3) Leukocytosis Qualifiers: Leukocytosis type: other Qualified Code(s): D72.828 - Other elevated white blood cell count (4) HTN (hypertension) Qualifiers: Hypertension type: essential hypertension Qualified Code(s): I10 - Essential (primary) hypertension
[2019-02-22] MEDS: Ipratropium Neb 0.5 MG NEBULIZER IH SCH ×2 (04:09→10:41)
[2019-02-22] MEDS: Levalbuterol Neb 1.25 MG/3 ML IH SCH ×2 (04:09→10:41)
[2019-02-22 05:40] LABS: Basophils # 0.1 K/mcL (0.0-0.2); Basophils % 0.2 %; Hematocrit 40.2 % (35.3-44.9); Hemoglobin 12.4 g/dL (11.5-15.4); Immature Granulocytes % 1.9 % (0-4); Lymphocytes % 8.6 %; Mean Corpuscular HGB Conc 30.8 g/dL (31.6-35.5); Mean Corpuscular Hemoglobin 28.3 pg (28.0-33.3); Mean Corpuscular Volume 91.8 fL (83.0-100.0); Mean Platelet Volume 9.2 fL (9.4-12.4); Monocytes # 1.2 K/mcL (0.0-1.3); Monocytes % 5.4 %; Neutrophils # 19.2 K/mcL (1.6-8.9); Platelet Count 392 K/mcL (140-400); Red Blood Count 4.38 M/mcL (3.82-4.97); Red Cell Distribution Width 14.2 % (11.5-14.5); Segmented Neutrophils % 83.9 %
[2019-02-22] MEDS: Doxycycline 100 MG in 0.9 % Sodium Chloride Mini Bag 100 ML IVPB SCH (05:42)
[2019-02-22] MEDS: *HR* Heparin 5,000 UNIT/ML VIAL SQ SCH (05:42)
[2019-02-22 06:01] LABS: BUN/Creatinine Ratio 32 (6-26); Blood Urea Nitrogen 23 mg/dL (8-23); Calcium 9.6 mg/dL (8.6-10.3); Carbon Dioxide 25 mEq/L (23-29); Chloride 104 mEq/L (98-107); Glucose 151 mg/dL (70-105); Osmolality,Calculated 293 (280-300); Potassium 4.9 mEq/L (3.5-5.1); Sodium 138 mEq/L (136-145); eGFR For Non-African Americans > 60 (> 60)
[2019-02-22] MEDS: Diltiazem CD (24hr) 180 MG CAPSULE PO SCH (08:09)
[2019-02-22] MEDS: Aspirin 81 MG TAB.CHEW PO SCH (08:09)
[2019-02-22] MEDS: Fluticasone Propionate Nasal 50 MCG/SPRAY BOTTLE NS SCH (08:10)
[2019-02-22] MEDS ORDERED: predniSONE 20 MG TABLET PO SCH (09:00)
--- NOTE | 2019-02-22 09:57 | Discharge Summary ---
Orders not resulted at time of discharge: Pending orders 02/23/19 04:00 BMP [Basic Metabolic Panel] AM 0400 CBC [Complete Blood Count] [HEME] AM 0400 Date of Encounter: 02/22/19 Time of Encounter: 09:55 - Discharge Diagnosis (1) Asthma with exacerbation Priority: Primary Status: Acute Qualifiers: Asthma severity: unspecified severity Asthma persistence: unspecified Qualified Code(s): J45.901 - Unspecified asthma with (acute) exacerbation (2) Acute respiratory failure with hypoxia Priority: Primary Status: Acute (3) Leukocytosis Priority: Primary Status: Acute Qualifiers: Leukocytosis type: other Qualified Code(s): D72.828 - Other elevated white blood cell count (4) HTN (hypertension) Priority: Secondary Status: Chronic Qualifiers: Hypertension type: essential hypertension Qualified Code(s): I10 - Ess ential (primary) hypertension (5) HANNAH (obstructive sleep apnea) Priority: Secondary Status: Chronic Hospital course: HOSPITAL COURSE: The patient is a 68-year-old woman with long-standing history of asthma/obstructive sleep apnea. She had provoked pulmonary emboli in the past. We admitted her with dyspnea developing in the last 2 weeks preceding this admission. With coughing and wheezing. Found hypoxic at admission. CT angiogram of the chest did not reveal any pulmonary emboli, pneumonia or other abnormalities. Echocardiogram was normal. We treated her with IV doxycycline, IV Solu-Medrol and nebulizer treatments with Xopenex. She was getting CPAP treatments for her obstructive sleep apnea. She returned to her baseline by the time of discharge. The patient has significant leukocytosis. Likely secondary to treatment with steroids (before and during this hospitalization). CONDITION AT DISCHARGE: It is good. Denies chest pain and difficulty breathing. She is on room air oxygen. She can ambulate on her own without difficulties. Skin: Free of rash and discoloration. Respiratory: Normal breath sounds with no crackles and wheezes bilaterally. CV: Heart is regular with no gallop or murmur. GI: Abdomen is flat and soft with no palpable mass or visceromegaly. Neuro exam: There is no focal deficits. Normal speech, swallowing and gait. SEE DISCHARGE ORDERS/MEDICATIONS Discharge discussed with: patient, nurse - Time Spent with Patient Total time spent providing and/or coordinating discharge services: Time spent: Greater than 30 minutes (40 minutes...) - Discharge Medications Prescriptions: New Doxycycline 100 mg PO BID 8 Days #16 capsule predniSONE [PredniSONE] 20 mg PO QAM 5 Days #5 tablet Continued Levalbuterol HCl [Xopenex] 1.25 mg IH Q4-6H PRN PRN Reason: ted Vit C/E/Zn/Coppr/Lutein/Zeaxan [Preservision Areds 2 Softgel] 1 tab PO BID Multivitamin [Multivitamins] 1 tab PO DAILY Aspirin [Lo-Dose Aspirin EC] 81 mg PO DAILY Omeprazole [PriLOSEC] 20 mg PO DAILY Montelukast [Singulair] 10 mg PO HS Diclofenac Sodium [Voltaren] 75 mg PO BID Sertraline [Zoloft] 200 mg PO DAILY Fluticasone Propionate Nasal [Flonase] 1 spray NS DAILY Albuterol Sulfate [Proair Hfa] 2 puff IH Q6H PRN PRN Reason: TED Furosemide [Lasix] 40 mg PO DAILY PRN PRN Reason: SWELLING Potassium Chloride [Klor-Con 10] 10 meq PO DAILY PRN PRN Reason: WITH LASIX Fluticasone Propionate Nasal [Flonase] 1 - 2 spray NS DAILY PRN PRN Reason: Allergy Symptoms Losartan [Cozaar] 25 mg PO DAILY Mometasone/Formoterol [Dulera 100 Mcg/5 Mcg Inhaler] 2 puff IH BID Atorvastatin [Lipitor] 40 mg PO HS Diltiazem HCl [Diltiazem 24Hr Cd] 180 mg PO DAILY Home Medications: Albuterol Sulfate [Proair Hfa] 2 puff IH Q6H PRN 02/19/19 [History] Aspirin [Lo-Dose Aspirin EC] 81 mg PO DAILY 02/19/19 [History] Diclofenac Sodium [Voltaren] 75 mg PO BID 02/19/19 [History] Fluticasone Propionate Nasal [Flonase] 1 - 2 spray NS DAILY PRN 02/19/19 [History] Fluticasone Propionate Nasal [Flonase] 1 spray NS DAILY 02/19/19 [History] Furosemide [Lasix] 40 mg PO DAILY PRN 02/19/19 [History] Levalbuterol HCl [Xopenex] 1.25 mg IH Q4-6H PRN 02/19/19 [History] Losartan [Cozaar] 25 mg PO DAILY 02/19/19 [History] Mometasone/Formoterol [Dulera 100 Mcg/5 Mcg Inhaler] 2 puff IH BID 02/19/19 [History] Montelukast [Singulair] 10 mg PO HS 02/19/19 [History] Multivitamin [Multivitamins] 1 tab PO DAILY 02/19/19 [History] Omeprazole [PriLOSEC] 20 mg PO DAILY 02/19/19 [History] Potassium Chloride [Klor-Con 10] 10 meq PO DAILY PRN 02/19/19 [History] Sertraline [Zoloft] 200 mg PO DAILY 02/19/19 [History] Vit C/E/Zn/Coppr/Lutein/Zeaxan [Preservision Areds 2 Softgel] 1 tab PO BID 02/19/19 [History] Atorvastatin [Lipitor] 40 mg PO HS 02/20/19 [History] Diltiazem HCl [Diltiazem 24Hr Cd] 180 mg PO DAILY 02/20/19 [History] Doxycycline 100 mg PO BID 8 Days #16 capsule 02/22/19 [Rx] predniSONE [PredniSONE] 20 mg PO QAM 5 Days #5 tablet 02/22/19 [Rx] Allergies/Adverse Reactions: Allergy/AdvReac Type Severity Reaction Status Date / Time No Known Allergies Allergy Verified 02/19/19 18:05 Date of admission: 02/19/19 20:52 Primary care physician: PCP NONE Discharging clinician: Mark Anthony Chris Anticipated date of discharge: 02/22/19 - Constitutional Vitals: Temp Pulse Resp BP Pulse Ox 97.6 F 65 16 123/68 97 02/22/19 06:46 02/22/19 06:46 02/22/19 06:46 02/22/19 06:46 02/22/19 06:46 General appearance: Present: A&O X 3, no acute distress, answers questions appropriately Exam: xx - Patient Status Disposition: Home, Self-Care Condition: Fair Functional capacity at discharge: independent ambulation Overall status at discharge: patient is back to baseline - Discharge Instructions Instructions: Asthma (DC), Dyspnea (GEN) Follow Up With: Jhoana Howell SHIRT SEWER [Advanced Practice Nurse] - 03/07/19 1:20 pm (Please follow up as schedule) NONE,PCP [Primary Care Provider] - - Diet and Activity Activity: increase activity as tolerated Diet: advance to your usual diet
[2019-02-22 11:28] VITALS: BP 134/68
== END 2019-02-22 11:51 | disposition home or self-care (01) ==
LOC: EMEROOARM 17:43 → 2ANU 17:43 → SUATTDRO 20:52 → 2ANU 22:02
PROVIDERS: ADMIT Internal Medicine; ATTEND Internal Medicine